=== PATIENT | female | born 1955 | race Caucasian/White ===

== ENCOUNTER 2019-04-25 20:10 | Inpatient (IN) | payer BC ==
[2019-04-25] MEDS ORDERED: ACETAMINOPHEN TAB 325 MG TAB PO PRN (20:29)
[2019-04-25] MEDS ORDERED: NALOXONE 0.4 MG/ML 1 ML VIAL IV PRN (20:29)
[2019-04-25] MEDS ORDERED: ONDANSETRON 4 MG/2 ML VIAL IVP PRN (20:29)
--- NOTE | 2019-04-25 20:37 | ED ---
General Adult HPI - General Chief complaint: Fall Stated complaint: Lft Hip Fx Time Seen by Provider: 04/25/19 20:14 Source: patient, EMS Mode of arrival: EMS Limitations: no limitations - History of Present Illness Initial comments: Dictation was produced using [employer] dictation software. please excuse any grammatical, word or spelling errors. Chief Complaint: 63-year-old female with past medical history of hypertension presents with left hip fracture from [facility]. History of Present Illness: Review of female presents via transfer from [facility]. Patient allegedly fell and slipped at home over some slick ice. She landed on her left side. She was seen at [facility] where she was diagnosed with proximal femur fracture of the left lower extremity. Patient was transferred to our facility per personal request and because she felt like she couldn't get her procedure performed sooner instead of waiting until Saturday at [facility]. Patient denies any numbness and waning paresthesias to the left lower extremity. The ROS documented in this emergency department record has been reviewed and confirmed by me. Those systems with pertinent positive or negative responses have been documented in the HPI. All other systems are other negative and/or noncontributory. PHYSICAL EXAM: General Impression: Alert and oriented x3, acute distress secondary to pain HEENT: Normocephalic atraumatic, extra-ocular movements intact, pupils equal and reactive to light bilaterally, mucous membranes moist. Cardiovascular: Heart regular rate and rhythm, S1&S2 audible, no murmurs, rubs or gallops Chest: Lungs clear to auscultation bilaterally, no rhonchi, no wheeze, no rales Abdomen: Bowel sounds present, abdomen soft, non-tender, non-distended, no organomegaly Musculoskeletal: Pulses present and equal in all extremities, no peripheral edema, gross abdomen onto the left proximal hip, shortened and externally rotated left lower extremity Motor: no focal deficits noted Neurological: CN II-XII grossly intact, no focal motor or sensory deficits noted Skin: Intact with no visualized rashes Psych: Normal affect and mood ED course: 63-year-old female presents with left hip fracture. She was transferred for orthopedic surgery and for patient request. As upon arrival shows low-grade temperature 100.3, heart rate of 108, worse vital signs within acceptable limits. Discussed patient case with Mayra who is head of sales promotion for [facility]. According to Mayra there is plans for surgery tomorrow at 11 AM. Patient nothing by mouth at midnight. She received call from transferring physician from [facility] and accepted the patient. She was set patient be admitted and medicine be consulted for medical clearance. Discussed patient case Dr. perry who will evaluate patient prior to surgery. Reports that he will perform an examination first thing in the morning tomorrow Review of Systems ROS Statement: Those systems with pertinent positive or pertinent negative responses have been documented in the HPI. ROS Other: All systems not noted in ROS Statement are negative. Past Medical History Past Medical History: Coronary Artery Disease (CAD), Hyperlipidemia, Hypertension History of Any Multi-Drug Resistant Organisms: None Reported Past Surgical History: Tonsillectomy Past Psychological History: No Psychological Hx Reported Smoking Status: Current some day smoker Past Alcohol Use History: Occasional Past Drug Use History: None Reported General Exam Limitations: no limitations Course Vital Signs 04/25/19 20:13 Temperature 100.3 F H Pulse Rate 108 H Respiratory 18 Rate Blood Pressure 100/71 O2 Sat by Pulse 97 Oximetry Disposition Clinical Impression: Hip fracture Disposition: ADMITTED IP TO THIS [facility] Condition: Fair Referrals: Nonstaff,Physician [Primary Care Provider] - 1-2 days Decision Time: 20:36
[2019-04-25] MEDS: SODIUM CHLORIDE 0.9% 1,000 ML IV SCH (20:38)
[2019-04-25] MEDS: HYDROmorphone 0.5 MG/0.5 ML SYRINGE IVP PRN (21:16)
[2019-04-25 22:01] LABS: Appearance,Urine Clear (Clear); Bilirubin,Urine Negative (Negative); Blood,Urine Trace (Negative); Color,Urine Yellow; Glucose,Urine (UA) Negative (Negative); Ketones,Urine Negative (Negative); Leukocyte Esterase,Urine Negative (Negative); Mucus,Urine Rare /hpf; Nitrite,Urine Negative (Negative); Protein,Urine Negative (Negative); RBC,Urine 1 /hpf (0-5); Specific Gravity,Urine 1.011 (1.001-1.035); Urobilinogen,Urine <2.0 mg/dL (<2.0); WBC,Urine <1 /hpf (0-5)
[2019-04-26] MEDS: HYDROmorphone 0.5 MG/0.5 ML SYRINGE IVP PRN ×4 (03:53→19:47)
[2019-04-26] MEDS: SODIUM CHLORIDE 0.9% 1,000 ML IV SCH ×2 (05:59→15:41)
[2019-04-26] MEDS: PANTOPRAZOLE 40 MG/10 ML VIAL IV SCH (07:42)
[2019-04-26] MEDS: CARVEDILOL 3.125 MG TAB PO SCH ×2 (09:20→16:38)
[2019-04-26] MEDS: ATORVASTATIN 80 MG TAB PO SCH (09:20)
--- NOTE | 2019-04-26 09:51 | P.CONS ---
History of Present Illness - Reason for Consult Preoperative clearance - History of Present Illness This is a pleasant 63-year-old female came in after a left hip fracture patient slipped and fell and stroke in her garage. Patient is going for surgery today I was asked to clear her from medical perspective. Patient does have history of a carotid artery disease with a stent in the past in the LAD and the patient EKG did show septal Q waves consistent with old microinfarction patient wasn't he doesn't have any chest pain patient does smoke about 6 cigarettes per day counseling regarding this was provided patient denied any fever chills shortness of breath or proximal nocturnal dyspnea orthopnea. Patient is very functional not dependence on ADLs and IADLs. Review of Systems REVIEW OF SYSTEMS: CONSTITUTIONAL: No fever, no malaise, no fatigue. HEENT: No recent visual problems or hearing problems. Denied any sore throat. CARDIOVASCULAR: No chest pain, orthopnea, PND, no palpitations, no syncope. PULMONARY: No shortness of breath, no cough, no hemoptysis. GASTROINTESTINAL: No diarrhea, no nausea, no vomiting, no abdominal pain. NEUROLOGICAL: No headaches, no weakness, no numbness. HEMATOLOGICAL: Denies any bleeding or petechiae. GENITOURINARY: Denies any burning micturition, frequency, or urgency. MUSCULOSKELETAL/RHEUMATOLOGICAL: Pain in the hip area where she had a fracture ENDOCRINE: Denies any polyuria or polydipsia. The rest of the 14-point review of systems is negative. Past Medical History Past Medical History: Coronary Artery Disease (CAD), Hyperlipidemia, Hypertension History of Any Multi-Drug Resistant Organisms: None Reported Past Surgical History: Tonsillectomy Additional Past Surgical History / Comment(s): 2 stents in LAD artery, right foot surgery Past Anesthesia/Blood Transfusion Reactions: Postoperative Nausea & Vomiting (PONV) Past Psychological History: No Psychological Hx Reported Smoking Status: Current some day smoker Past Alcohol Use History: Occasional Past Drug Use History: None Reported - Past Family History Father Family Medical History: Congestive Heart Failure (CHF) Mother Family Medical History: Congestive Heart Failure (CHF) Medications and Allergies Home Medications Medication Instructions Recorded Confirmed Type Aspirin [Adult Low Dose Aspirin EC] 81 mg PO DAILY 04/25/19 04/25/19 History Atorvastatin [Lipitor] 80 mg PO DAILY 04/25/19 04/25/19 History Carvedilol [Coreg] 3.125 mg PO BID 04/25/19 04/25/19 History Lisinopril 20 mg PO DAILY 04/25/19 04/25/19 History Allergies Allergy/AdvReac Type Severity Reaction Status Date / Time No Known Allergies Allergy Verified 04/25/19 21:59 Physical Exam Vitals: Vital Signs Temp Pulse Pulse Resp BP BP Pulse Ox 04/26/19 07:00 98.6 F 89 18 155/72 99 04/26/19 00:39 98.9 F 84 15 146/74 96 04/25/19 21:15 98.3 F 92 16 119/69 97 04/25/19 20:13 100.3 F H 108 H 18 100/71 97 Intake and Output 04/25/19 04/26/19 04/26/19 22:59 06:59 14:59 Intake Total 200 800 Output Total 400 Balance 200 400 Intake: Intake, IV Titration 800 Amount Sodium Chloride 0.9% 1, 800 000 ml @ 100 mls/hr IV . Q10H [facility] Rx#:[id number] Oral 200 Output: Urine 400 Other: Voiding Method Indwelling Catheter Indwelling Catheter Weight 70 kg PHYSICAL EXAMINATION: GENERAL: The patient is alert and oriented x3, not in any acute distress. Well developed, well nourished. HEENT: Pupils are round and equally reacting to light. EOMI. No scleral icterus. No conjunctival pallor. Normocephalic, atraumatic. No pharyngeal erythema. No thyromegaly. CARDIOVASCULAR: S1 and S2 present. No murmurs, rubs, or gallops. PULMONARY: Chest is clear to auscultation, no wheezing or crackles. ABDOMEN: Soft, nontender, nondistended, normoactive bowel sounds. No palpable organomegaly. MUSCULOSKELETAL: Deferred to orthopedic surgery EXTREMITIES: No cyanosis, clubbing, or pedal edema. NEUROLOGICAL: Gross neurological examination did not reveal any focal deficits. SKIN: No rashes. Results Labs: Abnormal Lab Results - Last 24 Hours (Table) 04/25/19 Range/Units 21:38 Urine Blood Trace H (Negative) Urine Mucus Rare H (None) /hpf Assessment and Plan Plan: -Left hip fracture, preoperative clearance patient is low risk for surgery her EKG findings appears to be from her previous heart attack and patient had a stent to LAD patient had septal infarct old on the EKG. I'll order echocardiogram but we don't need to wait for the echo results patient can go for surgery this and benefits were explained to the patient -Hypertension well and patient will be resumed on beta blockers will hold off on ED inhibitor to prevent perioperative hypotension -Coronary artery disease, aspirin to be started after surgery unless patient going to get higher dose of aspirin for DVT prophylaxis -hyperlipidemia -Nicotine abuse: Counseling was provided
[2019-04-26] MEDS ORDERED: ONDANSETRON 4 MG/2 ML VIAL ONE (11:00)
[2019-04-26] MEDS ORDERED: ceFAZolin 1,000 MG VIAL ONE (11:00)
[2019-04-26] MEDS ORDERED: ceFAZolin 2 GM in SODIUM CHLORIDE 0.9% 100 ML IVPB ONE (11:00)
[2019-04-26] MEDS ORDERED: MIDAZOLAM 2 MG/2 ML VIAL ONE (11:00)
[2019-04-26] MEDS ORDERED: KETAMINE 10 MG/ML 20 ML VIAL ONE (11:00)
[2019-04-26] MEDS ORDERED: LIDOCAINE 1% INJ 10MG/ML (20 ML MDV) ONE (11:00)
[2019-04-26] MEDS ORDERED: PHENYLEPHRINE-0.9% NACL SYG 1 MG/10 ML SYRINGE ONE (11:00)
[2019-04-26] MEDS ORDERED: PROPOFOL 10 MG/ML 20 ML VIAL IV ONE (11:00)
[2019-04-26] MEDS ORDERED: fentaNYL (PF) 50 MCG/ML 2 ML AMP ONE (11:00)
--- NOTE | 2019-04-26 11:02 | P.HPOR ---
History of Present Illness H&P Date: 04/26/19 Chief Complaint: Left hip fracture This is a 63-year-old female admitted through the emergency department last evening as a transfer from [facility] with a left hip fracture. The patient states that she was going out to her car and slipped and fell on the ground while opening the garage door. She states that she laid on the ground for about a half an hour before help arrived. She was found to have a comminuted intertrochanteric fracture of the left hip and transferred to [facility]. The patient is admitted to our service for surgical intervention and care. Past Medical History Past Medical History: Coronary Artery Disease (CAD), Hyperlipidemia, Hypertension History of Any Multi-Drug Resistant Organisms: None Reported Past Surgical History: Tonsillectomy Additional Past Surgical History / Comment(s): 2 stents in LAD artery, right foot surgery Past Anesthesia/Blood Transfusion Reactions: Postoperative Nausea & Vomiting (PONV) Past Psychological History: No Psychological Hx Reported Smoking Status: Current some day smoker Past Alcohol Use History: Occasional Past Drug Use History: None Reported - Past Family History Father Family Medical History: Congestive Heart Failure (CHF) Mother Family Medical History: Congestive Heart Failure (CHF) Medications and Allergies Home Medications Medication Instructions Recorded Confirmed Type Aspirin [Adult Low Dose Aspirin EC] 81 mg PO DAILY 04/25/19 04/25/19 History Atorvastatin [Lipitor] 80 mg PO DAILY 04/25/19 04/25/19 History Carvedilol [Coreg] 3.125 mg PO BID 04/25/19 04/25/19 History Lisinopril 20 mg PO DAILY 04/25/19 04/25/19 History Allergies Allergy/AdvReac Type Severity Reaction Status Date / Time No Known Allergies Allergy Verified 04/25/19 21:59 Physical Examination This is a pleasant 63-year-old female in no acute distress. She is alert and oriented 3. Exam of the head neck reveal no obvious deformity. Exam the upper extremities is unremarkable. She has full shoulder, elbow, wrist and finger motion. Neurovascular status to the upper extremities is intact. Exam of the lower extremities reveals shortening and external rotation to the left leg. She has full foot and ankle motion bilaterally. Pedal pulses are +2/4. Neurovascular status to the lower extremities is intact. Results X-rays from [facility] reveal a comminuted, shortened intertrochanteric fracture of the left hip. - Labs Labs: Abnormal Lab Results - Last 24 Hours (Table) 04/25/19 Range/Units 21:38 Urine Blood Trace H (Negative) Urine Mucus Rare H (None) /hpf Assessment and Plan (1) Closed comminuted intertrochanteric fracture of left femur Current Visit: Yes Status: Acute Code(s): S72.142A - DISPLACED INTERTROCHANTERIC FRACTURE OF LEFT FEMUR, INIT SNOMED Code(s): 977828238 (2) History of heart artery stent Current Visit: Yes Status: Acute Code(s): Z95.5 - PRESENCE OF CORONARY ANGIOPLASTY IMPLANT AND GRAFT SNOMED Code(s): 247154230 Plan: The clinical and x-ray findings are discussed with the patient and her family. It is recommended that she undergo closed reduction with insertion of intertrochanteric nail of the left hip. The procedures been discussed in detail including the possible risks and outcomes of surgery. After discussion and consideration the patient elects to proceed with surgery. We discussed the possible need for inpatient rehab postoperatively.
[2019-04-26] MEDS ORDERED: SODIUM CHLORIDE 0.9% 1,000 ML IV ONE (11:04)
[2019-04-26] MEDS ORDERED: LACTATED RINGERS 1,000 ML IV ONE (11:39)
[2019-04-26] MEDS ORDERED: ceFAZolin 1,000 MG in SODIUM CHLORIDE 0.9% 1,000 ML IRRIGATION ONE (11:39)
--- NOTE | 2019-04-26 12:15 | P.OP ---
Date of Procedure: 04/26/19 Preoperative Diagnosis: Closed four-part intertrochanteric fracture left hip Postoperative Diagnosis: Closed four-part intertrochanteric fracture left hip Procedure(s) Performed: Close reduction and intramedullary rodding of the left hip Implants: [employer] Intertan nail 125, 11.5 mm x 18 cm. [employer] Intertan integrated-interlocking lag screw, 90 mm lag screw, 95 mm compression screw. [employer] L-P screw, 5.0 mm x 32.5 mm. Anesthesia: spinal Surgeon: Everardo Anthony Surgical Processor #1: Mayra Weldon Estimated Blood Loss (ml): 100 Pathology: none sent Condition: stable Disposition: PACU Indications for Procedure: This is a 63-year-old female that sustained a ground-level fall at home yesterday. X-rays demonstrate a 4 part intratrochanteric fracture of her left hip. After discussing the surgical nonsurgical treatment options with her at length I recommended a close reduction with intramedullary rodding of the hip and informed consent was obtained. Operative Findings: The operative findings are consistent with a four-part intertrochanteric fracture of the left hip Description of Procedure: The patient was seen in the preoperative area, consent was reviewed, and the operative site was marked with a skin marker. The surgical procedure was discussed at length with both the patient and the family at the bedside. All questions were answered to the best of my ability. The patient was brought to the operating room and placed on the fracture table. Anesthesia was administered by the anesthesia department. 2 g of Ancef were administered intravenously. The patient was placed supine on the fracture table with the fractured extremity in traction boot. The other extremity was placed in a well leg clay and the bony prominences were well padded. A universal timeout was then performed which confirmed the patient's name, surgical site, ALLERGIES, and consent. Fracture reduction was performed with a traction and abduction maneuver which was confirmed with fluoroscopy, both AP and lateral views.. After reduction was performed, the extremity was then prepped with ChloraPrep solution and draped in the usual sterile fashion. Utilizing fluoroscopy to identify the tip of the greater trochanter, a 3 cm longitudinal incision was made just proximal to the greater trochanter. Incision was carried through the fascia to the tip of the greater trochanter. Utilizing a curved awl, the entry point was created at the tip of the greater trochanter and centralized in the AP and lateral planes. These locations were confirmed by fluoroscopy. A guidewire was then inserted down the medullary canal. Sequentially reaming of the femur was performed to 13 mm distally and 17 mm proximally with the channel reamer. After reaming, appropriate size nail was inserted over the guidewire. The nail was inserted to the appropriate depth and the guidewire was removed. Placement of the darvin was confirmed with both AP and lateral fluoroscopic views. The lag screw drill sleeve was placed in the jig and a small skin incision was made on the lateral aspect of the leg and the lag screw drill sleeve was locked into the guide. The 3.2 mm guide pin sleeve was inserted through the lag screw drill sleeve down to bone. A 3.2 mm distally threaded guidewire was inserted through the guide pin sleeve. The guidewire was inserted in the desired position in the femoral head, both anterior and posterior. The lag screw length cage was inserted over the guidepin to the back of the lag screw drill sleeve. Lag screw length was then measured from the cage. Next, the 7.0 mm compression screw starter drill was inserted in the lag screw drill sleeve beneath the guidepin. The compression screw starter drill was advanced under power until it abutted the back and of the lag screw drill sleeve. The 7.0 mm compression screw drill was inserted through the lag screw drill sleeve into the hole created by the compression screw starter drill. This was advanced under fluoroscopy to a depth 5 mm less and the measurement taken for the guidepin. The compression screw drill was removed and the antirotation bar was inserted into the same hole. The 3.2 mm guide pin sleeve was then removed from the drill guide. The lag screw drill was then inserted to a depth that was measured by the lag screw gauge. This was done under fluoroscopy. The lag screw was inserted over the guidewire to the appropriate depth using fluoroscopy. Traction was then released. The antirotation bar was then removed and the compression screw was advanced through the lag screw drill sleeve beneath the lag screw. This was advanced to the appropriate compression was achieved. The proximal drill guide was then removed and the distal drill guide was then inserted in the jig. Skin incision was made down to bone and the distal drill guide was then placed. Distal hole was then drilled with a 4.0 mm drill and measured to the appropriate depth. Distal screw was then placed. The entire assembly was then removed and final fluoroscopic x-rays were obtained. The wounds were then irrigated copiously with saline solution. Fascia was closed with 0-Vicryl. Subcutaneous tissues were closed with 2-0 Vicryl and the skin was closed with ruddy. Sterile dressings were applied. The patient was transported to the recovery room in stable condition. The kennel assistant RENÉE Christian was required due the complexity of surgery the need for skilled certified surgical tech/first assistant for positioning draping retraction and fracture reduction.
[2019-04-26] MEDS ORDERED: HYDROmorphone 0.5 MG/0.5 ML SYRINGE IVP PRN ×2 (12:47)
[2019-04-26] MEDS ORDERED: DIAZEPAM 5 MG TAB PO PRN (12:47)
[2019-04-26] MEDS ORDERED: HYDROcodone/APAP 5-325MG 1 EACH TAB PO PRN (12:47)
[2019-04-26] MEDS ORDERED: NALOXONE 0.4 MG/ML 1 ML VIAL IV PRN (12:47)
[2019-04-26] MEDS ORDERED: MAGNESIUM HYDROXIDE 2,400 MG/10 ML CUP PO PRN (12:47)
[2019-04-26] MEDS ORDERED: TEMAZEPAM 15 MG CAP PO PRN (12:47)
--- NOTE | 2019-04-26 13:12 | FL ---
FLUOROSCOPY 75 seconds of fluoroscopy time were utilized during intramedullary darvin fixation and dynamic hip pinni ng of the left hip. 2 images document the procedure.
[2019-04-26] MEDS: LACTATED RINGERS 1,000 ML IV SCH (15:41)
[2019-04-26 16:01] LABS: Basophils % (A) 0 %; Eosinophils # (A) 0.1 k/uL (0-0.7); Eosinophils % (A) 1 %; HCT 26.5 % (34.0-46.0); HGB 8.4 gm/dL (11.4-16.0); Lymphocytes # (A) 1.6 k/uL (1.0-4.8); Lymphocytes % (A) 21 %; MCH 31.9 pg (25.0-35.0); MCHC 31.8 g/dL (31.0-37.0); MCV 100.3 fL (80.0-100.0); Mean Platelet Volume 8.7; Monocytes # (A) 0.6 k/uL (0-1.0); Monocytes % (A) 8 %; Neutrophils # (A) 5.4 k/uL (1.3-7.7); Neutrophils % (A) 69 %; Platelet Count 188 k/uL (150-450); RBC 2.65 m/uL (3.80-5.40); RDW 12.4 % (11.5-15.5); WBC 7.8 k/uL (3.8-10.6)
[2019-04-26] MEDS: SENNOSIDES-DOCUSATE SODIUM 1 EACH TAB PO SCH (19:47)
[2019-04-26] MEDS: HYDROcodone/APAP 5-325MG 1 EACH TAB PO PRN (22:41)
[2019-04-27] MEDS: LACTATED RINGERS 1,000 ML IV SCH ×3 (00:13→20:39)
[2019-04-27] MEDS: SODIUM CHLORIDE 0.9% 1,000 ML IV SCH ×3 (05:35→20:39)
[2019-04-27] MEDS: ATORVASTATIN 80 MG TAB PO SCH (08:00)
[2019-04-27] MEDS: PANTOPRAZOLE 40 MG/10 ML VIAL IV SCH (08:00)
[2019-04-27] MEDS: CARVEDILOL 3.125 MG TAB PO SCH ×2 (08:00→17:18)
[2019-04-27] MEDS: HYDROcodone/APAP 5-325MG 1 EACH TAB PO PRN ×2 (08:02→17:20)
--- NOTE | 2019-04-27 09:10 | P.PN ---
Subjective Progress Note Date: 04/27/19 Principal diagnosis: Intertrochanteric fracture left hip. Status post close reduction with insertion of intertrochanteric nail left hip. This is a 63-year-old female who is status post close reduction and insertion of intertrochanteric nail of the left hip on 04/26/2019. She is doing well from an orthopedic standpoint. She has no new complaints or concerns today. Her hemoglobin is low today, 8.4. Vital signs and labs otherwise stable. Objective - Vital Signs Vital signs: Vital Signs Temp 100.1 F H 04/27/19 07:25 Pulse 96 04/27/19 07:25 Resp 17 04/27/19 07:25 BP 133/78 04/27/19 07:25 Pulse Ox 97 04/27/19 07:25 Intake & Output 04/26/19 04/27/19 04/27/19 18:59 06:59 18:59 Intake Total 1101 Output Total 350 Balance 751 Intake: IV 1101 Output: Urine 250 Estimated Blood Loss 100 Other: Voiding Method Indwelling Catheter Indwelling Catheter - Exam This is a pleasant 63-year-old female in no acute distress. She is alert and oriented 3. Exam of the left hip reveals dressing is clean, dry and intact. She has full foot and ankle motion. Neurovascular status to the lower extremities intact. - Labs CBC & Chem 7: 04/26/19 15:29 Labs: Abnormal Lab Results - Last 24 Hours (Table) 04/26/19 Range/Units 15:29 RBC 2.65 L (3.80-5.40) m/uL Hgb 8.4 L (11.4-16.0) gm/dL Hct 26.5 L (34.0-46.0) % MCV 100.3 H (80.0-100.0) fL Assessment and Plan (1) Closed comminuted intertrochanteric fracture of left femur Current Visit: Yes Status: Acute Code(s): S72.142A - DISPLACED INTERTROCHANTERIC FRACTURE OF LEFT FEMUR, INIT SNOMED Code(s): 462217059 (2) History of heart artery stent Current Visit: Yes Status: Acute Code(s): Z95.5 - PRESENCE OF CORONARY ANGIOPLASTY IMPLANT AND GRAFT SNOMED Code(s): 035189030 Plan: The clinical findings are discussed with the patient. She'll begin with physical therapy today. We will see how she does with PT and reassess tomorrow. Possible discharge to home tomorrow.
--- NOTE | 2019-04-27 11:08 | P.PN ---
Subjective patient is admitted after a mechanical fall intertrochanteric fracture of the left hip underwent nailing and closed reduction.patient is still complaining of pain. Patient's lisinopril is being held which can be resumed if her blood pressure starts going up to prevent perioperative hypotension I'm holding this medication Constitutional: Denied any fatigue denied any fever. Cardio vascular: denied any chest pain, palpitations Gastrointestinal denied any nausea vomiting Pulmonary: Denied any shortness of breath cough Neurologic denied any new focal deficits All inpatient medications were reviewed and appropriate changes in these medications as dictated in the interval history and assessment and plan. Objective - Vital Signs Vital signs: Vital Signs Temp 100.1 F H 04/27/19 07:25 Pulse 96 04/27/19 07:25 Resp 17 04/27/19 07:25 BP 133/78 04/27/19 07:25 Pulse Ox 97 04/27/19 07:25 Intake & Output 04/26/19 04/27/19 04/27/19 18:59 06:59 18:59 Intake Total 1101 200 Output Total 350 Balance 751 200 Intake: IV 1101 Oral 200 Output: Urine 250 Estimated Blood Loss 100 Other: Voiding Method Indwelling Catheter Indwelling Catheter - Exam PHYSICAL EXAMINATION: GENERAL: The patient is alert and oriented x3, not in any acute distress. Well developed, well nourished. HEENT: Pupils are round and equally reacting to light. EOMI. No scleral icterus. No conjunctival pallor. Normocephalic, atraumatic. No pharyngeal erythema. No thyromegaly. CARDIOVASCULAR: S1 and S2 present. No murmurs, rubs, or gallops. PULMONARY: Chest is clear to auscultation, no wheezing or crackles. ABDOMEN: Soft, nontender, nondistended, normoactive bowel sounds. No palpable or ganomegaly. MUSCULOSKELETAL: Deferred to orthopedic surgery EXTREMITIES: No cyanosis, clubbing, or pedal edema. NEUROLOGICAL: Gross neurological examination did not reveal any focal deficits. SKIN: No rashes. - Labs CBC & Chem 7: 04/26/19 15:29 Labs: Abnormal Lab Results - Last 24 Hours (Table) 04/26/19 Range/Units 15:29 RBC 2.65 L (3.80-5.40) m/uL Hgb 8.4 L (11.4-16.0) gm/dL Hct 26.5 L (34.0-46.0) % MCV 100.3 H (80.0-100.0) fL Assessment and Plan Plan: -Left hip fracture, patient is still having pain in the surgical site area pain management and DVT prophylaxis as perprimary service postoperative fever most probably atelectasis but will rule out sepsis will not be started on any antibiotics patient will obtain a chest x-ray UA urine culture and blood culture. -Hypertension well and patient will be resumed on beta blockers will hold off on ED inhibitor to prevent perioperative hypotension, have if her blood pressure starts going up patient can be resumed on her home dose of ED inhibitor -Coronary artery disease patient will be resumed on aspirin continue with beta eli -hyperlipidemia -Nicotine abuse: Counseling was provided
--- NOTE | 2019-04-27 11:17 | XR ---
EXAMINATION TYPE: XR chest 1V portable DATE OF EXAM: 04/27/2019 CLINICAL HISTORY: Fever. Hip replacement surgery yesterday. TECHNIQUE: Single AP portable follow-up right view of the chest is obtained. COMPARISON: None FINDINGS: There is no focal air space opacity, pleural effusion, or pneumothorax seen. The cardiac silhouette size is within normal limits. The osseous structures are intact. IMPRESSION: No suspicious acute pulmonary process.
--- NOTE | 2019-04-27 12:00 | ECHOF ---
Referral Reason:pre op clearance MEASUREMENTS -------- HEIGHT: 167.6 cm WEIGHT: 69.9 kg BP: 122/73 IVSd: 0.7 cm (0.6 - 1.1) LVIDd: 3.8 cm (3.9 - 5.3) LVPWd: 0.9 cm (0.6 - 1.1) IVSs: 1.2 cm LVIDs: 2.6 cm LVPWs: 1.3 cm Ao Diam: 2.9 cm (2.0 - 3.7) AV Cusp: 1.3 cm (1.5 - 2.6) LA Diam: 2.4 cm (2.7 - 3.8) MV EXCURSION: 12.755 mm (> 18.000) MV EF SLOPE: 46 mm/s (70 - 150) EPSS: 1.0 cm MV E Jak: 1.15 m/s MV DecT: 163 ms MV A Jak: 1.18 m/s MV E/A Ratio: 0.98 RAP: 5.00 mmHg RVSP: 20.05 mmHg FINDINGS -------- Resting tachycardia (HR>100bpm). This was a technically good study. The left ventricular size is normal. Left ventricular wall thickness is normal. Overall left vent ricular systolic function is normal with, an EF between 55 - 60 %. The right ventricle is normal in size. The left atrial size is normal. The right atrial size is normal. The aortic valve is trileaflet and appears structurally normal. The mitral valve is normal. Mild mitral regurgitation is present. The tricuspid valve appears structurally normal. Trace tricuspid regurgitation present. Right yeison tricular systolic pressure is normal at < 35 mmHg. There is no pulmonic regurgitation present. The aortic root size is normal. Normal inferior vena cava with normal inspiratory collapse consistent with estimated right atrial pre ssure of 5 mmHg. There is no pericardial effusion. CONCLUSIONS -------- 1. Resting tachycardia (HR>100bpm). 2. This was a technically good study. 3. The left ventricular size is normal. 4. Left ventricular wall thickness is normal. 5. Overall left ventricular systolic function is normal with, an EF between 55 - 60 %. 6. The right ventricle is normal in size. 7. The left atrial size is normal. 8. The right atrial size is normal. 9. The aortic valve is trileaflet and appears structurally normal. 10. The mitral valve is normal. 11. Mild mitral regurgitation is present. 12. The tricuspid valve appears structurally normal. 13. Trace tricuspid regurgitation present. 14. Right ventricular systolic pressure is normal at < 35 mmHg. 15. There is no pulmonic regurgitation present. 16. The aortic root size is normal. 17. Normal inferior vena cava with normal inspiratory collapse consistent with estimated right atrial pressure of 5 mmHg. 18. There is no pericardial effusion. STILL PHOTOGRAPHER: Mayra Patel RDCS
[2019-04-27] MEDS: ASPIRIN 81 MG PO SCH (13:22)
[2019-04-27 16:54] LABS: Appearance,Urine Clear (Clear); Bilirubin,Urine Negative (Negative); Blood,Urine Small (Negative); Color,Urine Light Yellow; Glucose,Urine (UA) Negative (Negative); Hyaline Casts,Urine 1 /lpf (0-2); Ketones,Urine Negative (Negative); Leukocyte Esterase,Urine Small (Negative); Nitrite,Urine Negative (Negative); Protein,Urine Negative (Negative); RBC,Urine 1 /hpf (0-5); Specific Gravity,Urine 1.005 (1.001-1.035); Urobilinogen,Urine <2.0 mg/dL (<2.0); WBC,Urine 7 /hpf (0-5)
[2019-04-27] MEDS: SENNOSIDES-DOCUSATE SODIUM 1 EACH TAB PO SCH (20:38)
[2019-04-28] MEDS: LACTATED RINGERS 1,000 ML IV SCH (05:54)
[2019-04-28 07:58] LABS: Basophils % (A) 0 %; Eosinophils # (A) 0.1 k/uL (0-0.7); Eosinophils % (A) 1 %; HGB 7.6 gm/dL (11.4-16.0); Lymphocytes # (A) 1.3 k/uL (1.0-4.8); Lymphocytes % (A) 20 %; MCHC 32.8 g/dL (31.0-37.0); MCV 97.4 fL (80.0-100.0); Monocytes # (A) 0.5 k/uL (0-1.0); Monocytes % (A) 7 %; Neutrophils # (A) 4.6 k/uL (1.3-7.7); Neutrophils % (A) 69 %; Platelet Count 200 k/uL (150-450); RBC 2.36 m/uL (3.80-5.40); WBC 6.7 k/uL (3.8-10.6)
[2019-04-28 07:59] VITALS: BP 96/61; PULSE 106; RESP 17; TEMP 99
[2019-04-28] MEDS ORDERED: PANTOPRAZOLE 40 MG TABLET PO SCH (08:30)
[2019-04-28] MEDS: ATORVASTATIN 80 MG TAB PO SCH (08:39)
[2019-04-28] MEDS: CARVEDILOL 3.125 MG TAB PO SCH (08:39)
[2019-04-28] MEDS: ASPIRIN 81 MG PO SCH (08:39)
[2019-04-28] MEDS: SODIUM CHLORIDE 0.9% 1,000 ML IV SCH (11:43)
[2019-04-28] MEDS: HYDROcodone/APAP 5-325MG 1 EACH TAB PO PRN (11:43)
--- NOTE | 2019-04-28 15:46 | P.PN ---
Subjective Progress Note Date: 04/28/19 Principal diagnosis: This is a 63-year-old female who was recently admitted after a mechanical fall and had a left intertrochanteric fracture of the hip and underwent nailing and closed reduction with Dr. Anthony and is being closely monitored. Patient has been up with physical therapy and tolerating well. Patient continues to have lower blood pressure readings and will continue to hold lisinopril until follow- up with primary care provider. Patient's hemoglobin today was 7.6 with no active bleeding noted. Patient denies any feelings of chest pain, shortness of breath, lightheadedness, or dizziness at this time. Discussed with the patient about following up with primary care provider in a few days for repeat labs to monitor hemoglobin. Patient verbalized understanding. Also discussed with the patient at length about continuing to use the incentive spirometer at least 10 times every hour while awake at home. Objective - Vital Signs Vital signs: Vital Signs Temp 99.0 F 04/28/19 07:35 Pulse 106 H 04/28/19 07:35 Resp 17 04/28/19 07:35 BP 96/61 04/28/19 07:35 Pulse Ox 100 04/28/19 07:35 Intake & Output 04/27/19 04/28/19 04/28/19 18:59 06:59 18:59 Intake Total 400 150 Output Total 2520 1550 400 Balance -2120 -1550 -250 Intake: Oral 400 150 Output: Urine 2520 1550 400 Uretheral (Weber) 400 Other: Voiding Method Indwelling Catheter # Voids 2 1 - Exam GENERAL: The patient is alert and oriented x3, not in any acute distress. Well developed, well nourished. HEENT: Pupils are round and equally reacting to light. EOMI. No scleral icterus. No conjunctival pallor. Normocephalic, atraumatic. No pharyngeal erythema. No thyromegaly. CARDIOVASCULAR: S1 and S2 present. No murmurs, rubs, or gallops. PULMONARY: Chest is clear to auscultation, no wheezing or crackles. ABDOMEN: Soft, nontender, nondistended, normoactive bowel sounds. No palpable organomegaly. MUSCULOSKELETAL: Deferred to orthopedic surgery EXTREMITIES: No cyanosis, clubbing, or pedal edema. NEUROLOGICAL: Gross neurological examination did not reveal any focal deficits. SKIN: No rashes. - Labs CBC & Chem 7: 04/28/19 07:22 Labs: Abnormal Lab Results - Last 24 Hours (Table) 04/27/19 04/28/19 Range/Units Unknown 07:22 RBC 2.36 L (3.80-5.40) m/uL Hgb 7.6 L (11.4-16.0) gm/dL Hct 23.0 L (34.0-46.0) % Urine Blood Small H (Negative) Ur Leukocyte Esterase Small H (Negative) Urine WBC 7 H (0-5) /hpf Microbiology - Last 24 Hours (Table) 04/27/19 10:18 Blood Culture - Preliminary Blood No Growth after 24 hours Assessment and Plan Assessment: -Left hip fracture -postoperative fever most probably atelectasis with ruled out sepsis -Hypertension -Coronary artery disease -hyperlipidemia -Nicotine abuse: Counseling was provided Recommendations and discussion: Recommend to continue current medications, management, and symptomatic treatment. Will continue to follow along closely during hospitalization. Di scussed with the patient about following up with primary care provider upon discharge and monitoring hemoglobin. Also discussed with the patient at length about refraining from any tobacco use and continuing to use incentive spirometer at least 10 times every hour while awake. Patient states she will be going home today and will have home care along with physical rehab in the outpatient setting. Further recommendations to follow. Possible discharge today.
--- NOTE | 2019-04-29 07:37 | CDI ---
Acute Blood Loss Anemia Documentation Clarification Form Date: 04/29/2019 07:25:11 AM From: Milla Jose Phone: If you have a question about this query, please contact Angelica Moss [employer] Log[employer] Coordinator at [phone] between 8am and 5pm. Admit Date: 04/25/2019 08:29:00 PM Patient Name: Marga Cobian Visit Number: [id number] Discharge Date: 04/28/2019 01:10:00 PM ATTENTION: The Clinical Documentation Specialists (CDI) and [facility] Coding Staff appreciate your assistance in clarifying documentation. Please respond to the clarification below the line at the bottom and electronically sign. The CDI & [facility] Coding staff will review the response and follow-up if needed. Please note: Queries are made part of the Legal Health Record. If you have any questions, please contact the author of this message via ITS. Dr. Everardo Anthony PN 04/26 documents low hemoglobin 8.4. On 04/27 patient's hemoglobin down to 7.6. Please clarify diagnosis for low hemoglobin. History/Risk Factors: Post IM and Closed reduction for IT fracture LT Clinical indicators: hemoglobin 8.4 then 7.6 Hemoglobin: 8.4, 7.6 Hematocrit: 26.5 23.0 In order to capture the severity of condition, please clarify if patient had anemia and if so, the type of anemia and etiology if known: Acute blood loss anemia Acute on chronic blood loss anemia Chronic blood loss anemia Iron deficiency anemia Hemolytic anemia Drug induced anemia Anemia due to malignancy Nutritional anemia Anemia of chronic kidney disease Unable to determine Other, please specify MTDD
--- NOTE | 2019-04-29 14:20 | P.DS ---
Providers Date of admission: 04/25/19 20:29 Expected date of discharge: 04/28/19 Attending physician: Everardo Anthony Consults: 04/25/19 20:30 Consult Physician Routine Consulting Provider: Avery Grullon Consult Reason/Comments: medical consultation Do you want consulting provider notified?: Yes Primary care physician: Physician Nonstaff - Discharge Diagnosis(es) (1) Fall Status: Acute (2) Closed comminuted intertrochanteric fracture of left femur Status: Acute Hospital Course: This is a 63 year old female who presented to the hospital post fall at home and sustained a left hip fracture. The patient was cleared by medicine for surgery. The patient underwent a IT nail on 04/26/[address] Everardo Anthony. The procedure was performed without complication or sequelae. The patient is doing well postoperatively. Labs and vital signs are stable on the day of discharge. On the day of discharge the patient's hip incision is healing well. There is minimal erythema. There is no drainage noted at this time. There is minimal soft tissue swelling to the hip and thigh. The patient has full foot and ankle motion without difficulty or pain. Neurovascular status to the left lower extremity is intact. The patient is discharged to home with homecare in stable condition. Pertinent Studies: Laboratory Tests 04/28/19 07:22 WBC 6.7 RBC 2.36 L Hgb 7.6 L Hct 23.0 L MCV 97.4 Patient Condition at Discharge: Stable Plan - Discharge Summary Discharge Rx Participant: Yes New Discharge Prescriptions: New HYDROcodone/APAP 5-325MG [[place] 5-325] 1 - 2 each PO Q6HR PRN #50 tab PRN Reason: Pain Sennosides-Docusate Sodium [Senokot-S] 2 each PO HS #60 tab Continue Lisinopril 20 mg PO DAILY Carvedilol [Coreg] 3.125 mg PO BID Atorvastatin [Lipitor] 80 mg PO DAILY Aspirin [Adult Low Dose Aspirin EC] 81 mg PO DAILY Discharge Medication List Aspirin [Adult Low Dose Aspirin EC] 81 mg PO DAILY 04/25/19 [History] Atorvastatin [Lipitor] 80 mg PO DAILY 04/25/19 [History] Carvedilol [Coreg] 3.125 mg PO BID 04/25/19 [History] Lisinopril 20 mg PO DAILY 04/25/19 [History] HYDROcodone/APAP 5-325MG [[place] 5-325] 1 - 2 each PO Q6HR PRN #50 tab 04/27/19 [Rx] Sennosides-Docusate Sodium [Senokot-S] 2 each PO HS #60 tab 04/27/19 [Rx] Follow up Appointment(s)/Referral(s): [facility] [NON-STAFF] - As Needed (walker ) Nonstaff,Physician [Primary Care Provider] - 1-2 days [facility] [NON-STAFF] - As Needed Everardo Anthony DO [Doctor of Osteopathic Medicine] - 05/08/19 8:55 am Ambulatory/Diagnostic Orders: Complete Blood Count w/diff [LAB.AMB] Time Frame: 2 Days, Location: None Selected Patient Instructions/Handouts: Return to Work Instructions (DC), Intramedullary Nailing (DC) Activity/Diet/Wound Care/Special Instructions: Toe touch weightbearing with walker Keep incision clean and dry Change dressings daily May shower over incision in 2-3 days [place] to be removed in office. Follow up with Dr. Everardo Anthony in 2 weeks. Hold lisinopril until you see PCP Repeat labs in 2-3 days [facility] with questions or concerns, Discharge Disposition: HOME WITH HOME HEALTH SERVICES
== END 2019-04-28 13:10 | disposition home health service (06) | DRG 481 ==
LOC: EC 20:10 → 4SSUR 20:29
PROVIDERS: ADMIT Orthopaedic Surgery; ATTEND Orthopaedic Surgery
PROC: 0QS736Z Reposition Left Upper Femur with Intramedullary Internal Fixation Device, Percutaneous Approach (ICD-10-PCS; principal; 2019-04-26 11:00)
DX: S72.142A Displaced intertrochanteric fracture of left femur, initial encounter for closed fracture (principal); J98.11 Atelectasis; D62 Acute posthemorrhagic anemia; W01.0XXA Fall on same level from slipping, tripping and stumbling without subsequent striking against object, initial encounter; Y92.009 Unspecified place in unspecified non-institutional (private) residence as the place of occurrence of the external cause; Z71.6 Tobacco abuse counseling; F17.219 Nicotine dependence, cigarettes, with unspecified nicotine-induced disorders; I10 Essential (primary) hypertension; I25.10 Atherosclerotic heart disease of native coronary artery without angina pectoris; E78.5 Hyperlipidemia, unspecified; Z79.82 Long term (current) use of aspirin; Z79.899 Other long term (current) drug therapy; Z82.49 Family history of ischemic heart disease and other diseases of the circulatory system; Z95.5 Presence of coronary angioplasty implant and graft
CPT/HCPCS: 71045; 73501; 81001; 85025; 87040; 93005; 93306; 99284